=== PATIENT | female | born 1960 | race Caucasian/White ===

== ENCOUNTER 2019-11-24 08:30 | Day surgery (SDC) | payer MEDICAID, MEDICARE, OTHER ==
[~2019-11-24] VITALS: Ht 152.4 cm; Wt 46.2 kg
[~2019-11-24 08:30] MED LIST: AMIT25TA PO; AMLO25TA PO; FLON1SPR; FOLI800C PO; HYDR-4517 PO; LIDOCAINE 2% INJ 100 MG/5 ML SDV (FOR ANES.) As Ordered ONE; LR 1,000 ML IV ONE; MIDAZOLAM INJ 2 MG/2 ML VIAL (J2250) As Ordered ONE; MIRA3350 PO; MORP-69 PO; ONDANSETRON 4MG/2ML VIAL (J2405) As Ordered ONE; PANT40TA3 PO; SIMV20TA22 PO; VITAD1000T PO; ceFAZolin SOD 2 GM in IV 1 EA IV ONE; dexameTHASONE 4 MG/ML 1ML VIAL (J1100) As Ordered ONE; fentaNYL 100 MCG/2 ML INJECTION (J3010) As Ordered ONE; propofoL 200 MG/20 ML VIAL As Ordered ONE
[2019-11-24] MEDS ORDERED: CONRAY-60 60% 50ML VIAL (Q9961) As Ordered ONE (09:26)
[2019-11-24] MEDS ORDERED: LIDOCAINE 2% 5ML JELLY UROJET As Ordered ONE (10:14)
[2019-11-24] MEDS ORDERED: ACETAMINOPHEN 1000MG 100ML IV BTL (OFIRMEV) (J0131 PER 10MG) As Ordered ONE (10:47)
[2019-11-24] MEDS ORDERED: PHENYLephrine HCL 500 MCG/5 ML (100MCG/ML) SYRINGE (J2370) As Ordered ONE (10:52)
[2019-11-24] MEDS ORDERED: ePHEDrine SULFATE 25 MG/5 ML(5MG/ML) SYRINGE As Ordered ONE (10:52)
[2019-11-24] MEDS ORDERED: propofoL 200 MG/20 ML VIAL As Ordered ONE (11:22)
[2019-11-24] MEDS ORDERED: fentaNYL 100 MCG/2 ML INJECTION (J3010) IV PRN (12:00)
[2019-11-24] MEDS ORDERED: ACETAMINOPHEN TAB 650MG DOSE (2X325MG) PO PRN (12:00)
[2019-11-24] MEDS ORDERED: ONDANSETRON 4MG/2ML VIAL (J2405) IV PRN (12:00)
[2019-11-24] MEDS ORDERED: LR 1,000 ML IV SCH (12:00)
[2019-11-24] MEDS ORDERED: ANEXSIA, NORCO 7.5MG/325MG TABLET(HYDROCODONE/APAP) PO PRN (12:15)
[2019-11-24 12:18] VITALS: BP 116/64
--- NOTE | 2019-11-24 22:30 | RO ---
DATE OF PROCEDURE: 11/24/2019 PREPROCEDURE DIAGNOSIS: Left ureteral obstruction. POSTPROCEDURE DIAGNOSIS: Left ureteral obstruction. PROCEDURE: Cystoscopy, left ureteroscopy with balloon dilation, left retrograde pyelogram with intraoperative interpretation of images, left ureteral stent placement. SURGEON: Bryant Bradford MD NEIGHBORHOOD AIDE: None. ANESTHESIA: Monitored anesthesia care (MAC). OPERATIVE INDICATIONS: This is a 59-year-old female with a large pelvic mass which has been compressing her left ureter and causing hydronephrosis. Of note she is getting chemotherapy because of this mass. Due to this it was recommended she be brought to the operating room today for a metallic stent placement. DESCRIPTION OF PROCEDURE: The patient was brought to the operating room where MAC anesthesia was administered. Prophylactic antibiotics were infused. He was placed in the dorsal lithotomy position and prepped and draped in the usual sterile fashion. A rigid cystoscope was inserted into the urethral meatus and advanced to the bladder. I attempted to advance a guidewire up the left collecting system, but it would not advance up the distal ureter. I then went up into the left ureter with a short semi-rigid ureteroscope and a retrograde pyelogram was performed. It was notable for moderately severe left hydroureteronephrosis down to the level of the stricture. I could not advance the scope past the stricture but was ultimately able to navigate the wire through the very narrow stricture and into the left kidney. At this point, the ureteroscope was removed and a balloon dilator was utilized to dilate the stricture to 15-[place]. I left the balloon up for at least 30 seconds in two different areas. Once that was done, I went back in with the ureteroscope and I was able to get the scope into the more proximal ureter. At this point, I withdrew the short semi-rigid ureteroscope and then advanced the cannula for the Resonance stent all the way up into the left kidney. The wire was then removed and another retrograde pyelogram was performed notable for severe left hydronephrosis. I then advanced a 6-[place] x 22 cm Resonance stent up into the cannula and into the kidney. The cannula was then withdrawn and then there were adequate curls of the stent in the left renal pelvis and in the bladder. The bladder was emptied of all fluids. This marked the conclusion of the procedure. The patient was taken out of the dorsal lithotomy position, awakened from anesthesia and transported to the recovery room in stable condition. ESTIMATED BLOOD LOSS: 5 mL COMPLICATIONS: None SPECIMENS: None PLAN: Until there is evidence demonstrating that the left pelvic mass has gotten smaller with chemotherapy we will plan to leave a stent in place. She is getting surveillance CT scans every 3 months in oncology and we will use that to assess whether or not the stent is adequately draining her kidney. If it is not, then the next option will be nephrostomy tube placement. We will have her followup in the clinic in approximately 3 months. BRUNA
== END 2019-11-24 12:32 | disposition home or self-care (01) ==
LOC: M SDC 08:30
PROVIDERS: ATTEND Urology
DX: N13.1 Hydronephrosis with ureteral stricture, not elsewhere classified (principal); I10 Essential (primary) hypertension; E78.00 Pure hypercholesterolemia, unspecified; K21.0 Gastro-esophageal reflux disease with esophagitis; J45.909 Unspecified asthma, uncomplicated; J44.9 Chronic obstructive pulmonary disease, unspecified; D64.9 Anemia, unspecified; F32.9 Major depressive disorder, single episode, unspecified; K58.1 Irritable bowel syndrome with constipation; K58.0 Irritable bowel syndrome with diarrhea; G62.9 Polyneuropathy, unspecified; Z87.891 Personal history of nicotine dependence; C56.2 Malignant neoplasm of left ovary; Z79.899 Other long term (current) drug therapy; Z79.891 Long term (current) use of opiate analgesic
CPT/HCPCS: 52332; 52341; 74420; C1769; J0131; J0690; J1100; J2250; J2370; J2405; J3010; Q9961